=== PATIENT | female | born 1990 | race Caucasian/White ===

== ENCOUNTER 2021-06-27 21:49 | Emergency (ER) | payer MEDICAID ==
[~2021-06-27] VITALS: Ht 160 cm; Wt 61.0 kg
[2021-06-27] MEDS ORDERED: ACETAMINOPHEN 325MG TABLET PO STA (22:03)
[2021-06-27] MEDS ORDERED: SODIUM CHLORIDE 0.9% 1,000 ML IV ONE (22:15)
[2021-06-27] MEDS ORDERED: ONDANSETRON 4MG ODT PO ONE (22:15)
[2021-06-27 22:26] LABS: BASOPHILS % 0.2 % (0.0-2.0); EOSINOPHILS % 0.9 % (0.0-5.0); HEMATOCRIT. 36.5 % (36.0-48.0); HEMOGLOBIN. 12.9 g/dL (12.0-16.0); LYMPHOCYTES % 15.5 % (20.0-50.0); MEAN CORPUSCULAR HEMOGLOBIN 31.4 pg (28.0-32.0); MEAN CORPUSCULAR VOLUME 88.9 fL (81.0-99.0); MEAN PLATELET VOLUME 7.7 fl (7.4-10.4); NEUTROPHILS % 79.4 % (40.0-76.0); PLATELET 220 x1000/uL (130-400); RED CELL DISTRIBUTION WIDTH 13.2 % (11.6-14.6)
[2021-06-27 22:31] LABS: CHLORIDE 110 mEq/L (98-107)
[2021-06-28 01:30] LABS: CLARITY URINE CLOUDY (CLEAR); COLOR URINE YELLOW (YELLOW); KETONES URINE NEGATIVE (NEGATIVE); LEUKOCYTE ESTERASE URINE 3+ (NEGATIVE); NITRITE URINE NEGATIVE (NEGATIVE); OCCULT BLOOD URINE TRACE (NEGATIVE); PH URINE 7.5 (4.5-8.0); PROTEIN URINE NEGATIVE (NEGATIVE); SPECIFIC GRAVITY URINE 1.007 (1.005-1.030)
[2021-06-28 01:33] VITALS: BP 109/62
== END 2021-06-28 01:57 | disposition home or self-care (01) ==
LOC: ER 21:49
DX: O99.611 Diseases of the digestive system complicating pregnancy, first trimester (principal); O26.51 Maternal hypotension syndrome, first trimester; Z3A.01 Less than 8 weeks gestation of pregnancy
CPT/HCPCS: 36415; 76700; 76815; 80053; 81003; 83690; 85025; 87086; 96360; 99291; J7030